=== PATIENT | male | born 1975 | race American Indian/Alaskan Native ===

== ENCOUNTER 2022-03-17 00:25 | Emergency (ER) | payer OTHER ==
[2022-03-17] MEDS ORDERED: ASPIRIN 325 MG TAB PO ONE (00:40)
[2022-03-17 00:48] VITALS: BP 134/77
[2022-03-17] MEDS ORDERED: SODIUM CHLORIDE 0.9% 1000 ML 1,000 ML IV ONE (00:51)
[2022-03-17 01:06] LABS: Basophils # (Auto) 0.1 K/mm3 (0.0-0.1); Basophils % (Auto) 0.5 % (0.0-1.8); Eosinophils # (Auto) 0.2 K/mm3 (0.0-0.4); Eosinophils % (Auto) 1.4 % (0.0-4.3); Hematocrit 47.7 % (35.5-45.6); Hemoglobin 15.9 gm/dl (11.8-15.2); Lymphocytes # (Auto) 2.9 K/mm3 (1.2-5.4); Lymphocytes % (Auto) 25.8 % (13.4-35.0); Mean Corpuscular HGB Conc 33 % (32-34); Mean Corpuscular Volume 90 fl (84-94); Monocytes # (Auto) 1.2 K/mm3 (0.0-0.8); Monocytes % (Auto) 10.8 % (0.0-7.3); Platelet Count 338 K/mm3 (140-440); Red Blood Count 5.29 M/mm3 (3.65-5.03); Red Cell Distribution Width 15.3 % (13.2-15.2)
[2022-03-17] MEDS ORDERED: ADENOSINE 6 MG/2 ML INJ IV ONE ×2 (01:17)
[2022-03-17 01:25] LABS: Alanine Aminotransferase 30 units/L (7-56); Albumin 4.1 g/dL (3.9-5); BUN/Creatinine Ratio 9; Blood Urea Nitrogen 11 mg/dL (9-20); Hemolysis Index 8
--- NOTE | 2022-03-17 02:10 | XRay Report ---
XR chest 1V ap INDICATION / CLINICAL INFORMATION: CHEST PAIN. COMPARISON: None available. FINDINGS: SUPPORT DEVICES: None. HEART /PULMONARY VASCULATURE: No significant abnormality. LUNGS / PLEURA: Lungs are hyperexpanded. No focal airspace consolidation. No pneumothorax. ADDITIONAL FINDINGS: No significant additional findings. IMPRESSION: 1. No acute findings. Signer Name: Trung Landa MD Signed: 03/17/2022 2:06 AM Workstation Name: [id number]
--- NOTE | 2022-03-17 02:11 | Emergency Department Report ---
ED General Adult HPI - General Chief complaint: Chest Pain Stated complaint: CHEST PAINS Time Seen by Provider: 03/17/22 00:46 Source: patient, family Mode of arrival: Ambulatory Limitations: No Limitations - History of Present Illness Initial comments: PT C/O HEART RACING AND CHEST PAIN X 2-3 HRS, REPORTS HX OF SVT pt stopped taking his meds hasn;t seen cardiology -: Sudden, hour(s) Location: chest Radiation: non-radiation Associated Symptoms: denies: denies other symptoms, confusion, chest pain, cough Treatments Prior to Arrival: none - Related Data Previous Rx's Medication Instructions Recorded Last Taken Type Metoprolol [Lopressor] 25 mg PO BID #60 tablet 03/17/22 Unknown Rx Allergies Allergy/AdvReac Type Severity Reaction Status Date / Time Penicillins Allergy Unknown Verified 03/17/22 00:40 ED Review of Systems ROS: Stated complaint: CHEST PAINS Other details as noted in HPI Constitutional: denies: chills, fever Eyes: denies: eye pain, eye discharge, vision change ENT: denies: ear pain, throat pain Respiratory: denies: cough, shortness of breath, wheezing Cardiovascular: denies: chest pain, palpitations Endocrine: no symptoms reported Gastrointestinal: denies: abdominal pain, nausea, diarrhea Genitourinary: denies: urgency, dysuria Musculoskeletal: denies: back pain, joint swelling, arthralgia Skin: denies: rash, lesions Neurological: denies: headache, weakness, paresthesias Psychiatric: denies: anxiety, depression Hematological/Lymphatic: denies: easy bleeding, easy bruising ED Past Medical Hx - Past Medical History Previous Medical History?: Yes Additional medical history: Tackycardia - Surgical History Past Surgical History?: No - Medications Home Medications: Home Medications Medication Instructions Recorded Confirmed Last Taken Type Metoprolol [Lopressor] 25 mg PO BID #60 tablet 03/17/22 Unknown Rx ED Physical Exam - General Limitations: No Limitations General appearance: alert, in no apparent distress - Head Head exam: Present: atraumatic, normocephalic - Eye Eye exam: Present: normal appearance - ENT ENT exam: Present: mucous membranes moist - Neck Neck exam: Present: normal inspection - Respiratory Respiratory exam: Present: normal lung sounds bilaterally. Absent: respiratory distress - Cardiovascular Cardiovascular Exam: Present: normal rhythm, tachycardia. Absent: systolic murmur, diastolic murmur, rubs, gallop - GI/Abdominal GI/Abdominal exam: Present: soft, normal bowel sounds - Rectal Rectal exam: Present: deferred - Extremities Exam Extremities exam: Present: normal inspection - Back Exam Back exam: Present: normal inspection - Neurological Exam Neurological exam: Present: alert, oriented X3 - Psychiatric Psychiatric exam: Present: normal affect, normal mood - Skin Skin exam: Present: warm, dry, intact, normal color. Absent: rash ED Course Vital Signs 03/17/22 00:42 Temperature 98.3 F Pulse Rate 87 Respiratory 18 Rate Blood Pressure 134/77 O2 Sat by Pulse 99 Oximetry ED Medical Decision Making - Lab Data Result diagrams: 03/17/22 00:48 03/17/22 00:48 - EKG Data -: EKG Interpreted by Me Rate: tachycardia - EKG Data Interpretation: other (SVT) - Radiology Data Radiology results: report reviewed, image reviewed - Medical Decision Making adenosine 6 mg then 12 mg with successful conversion to sinus Critical care attestation.: If time is entered above; I have spent that time in minutes in the direct care of this critically ill patient, excluding procedure time. ED Disposition Clinical Impression: SVT (supraventricular tachycardia) Disposition: 01 HOME / SELF CARE / HOMELESS Is pt being admited?: No Does the pt Need Aspirin: No Condition: Stable Instructions: Supraventricular Tachycardia, Adult Prescriptions: Metoprolol [Lopressor] 25 mg PO BID #60 tablet Referrals: JACK QUEEN MD [Staff Physician] - 3-5 Days
--- NOTE | 2022-03-18 10:17 | Electrocardiograph Report ---
[facility] Test Date: 2022-03-17 Test Time: 00:31:21 Pat Name: RODGER LINDO III Department: Room: Gender: M [employer]: EZ : 1975 Requested By: NATHAN HERNANDEZ Order Number: [id number] Reading MD: Leno Morales Measurements Intervals [place] Rate: 152 P: 0 [place]: 76 QRS: 80 QRSD: 94 T: 55 QT: 287 QTc: 456 Interpretive Statements Supraventricular tachycardia No previous ECG available for comparison Electronically Signed On 03-18-2022 10:17:08 EDT by Leno Morales
== END 2022-03-17 02:25 | disposition home or self-care (01) ==
LOC: ED 00:25
DX: I47.1 Supraventricular tachycardia (principal); Z88.0 Allergy status to penicillin; Z79.899 Other long term (current) drug therapy
CPT/HCPCS: 36415; 71045; 80053; 84443; 84484; 85025; 93005; 96361; 96374; 99284; J0153; J7030